=== PATIENT | male | born 1990 | race Caucasian/White ===

== ENCOUNTER 2022-05-31 01:27 | Emergency (ER) | payer OTHER, BC ==
[2022-05-31] MEDS ORDERED: Iopamidol 370 76% 100 ML VIAL FS ONE (01:28)
[2022-05-31 02:00] LABS: Hemoglobin 17.8 g/dL (14.0-18.0); Mean Corpuscular HGB CONC 36.4 g/dL (32.0-36.0); Mean Corpuscular Hemoglobin 31.8 pg (27.0-31.0); Mean Corpuscular Volume 87.5 fL (78.0-98.0); Mean Platelet Volume 7.1 fL (7.4-10.4); Platelet Count 312 thou/uL (130-400); RBC Distribution Width 11.2 % (11.5-14.5); Red Blood Cell (RBC) Count 5.58 mill/uL (4.70-6.10); White Blood Cell (WBC) Count 23.4 thou/uL (4.8-10.8)
[2022-05-31 02:04] LABS: INR-International Normal Ratio 0.9; Prothrombin Time 12.6 sec (12.0-14.7)
[2022-05-31 02:13] LABS: ALT (SGPT) 186 U/L (8-55); AST (SGOT) 172 U/L (5-34); Albumin 4.8 g/dL (3.5-5.0); Alcohol 204 mg/dL (Less than 10); Alkaline Phosphatase 75 U/L (40-110); Anion Gap 21 mmol/L (10-20); BUN (Urea Nitrogen) 9 mg/dL (8.9-20.6); Bilirubin, Total 0.6 mg/dL (0.2-1.2); Calc. Creatinine Clearance 0 mL/min (70-130); Calcium 9.4 mg/dL (7.8-10.44); Carbon Dioxide 18 mmol/L (22-29); Chloride 108 mmol/L (98-107); Estimated GFR 119; Glucose 132 mg/dL (70-105); Potassium 3.3 mmol/L (3.5-5.1); Protein, Total 7.8 g/dL (6.0-8.3); Sodium 144 mmol/L (136-145)
[2022-05-31] MEDS ORDERED: Boostrix 0.5 ML (Tdap) VIAL ONE (02:30)
[2022-05-31] MEDS ORDERED: Propofol 1,000 MG/100 ML VIAL IV ONE (02:30)
[2022-05-31 02:35] LABS: Band 13 % (5-11); Lymphocytes 14 % (21-51); MDiff Complete? YES; Monocytes 7 % (0-10); Neutrophil 66 % (42-75)
[2022-05-31] MEDS ORDERED: Bacitracin 1 PK ONE (03:17)
[2022-05-31] MEDS ORDERED: Ketorolac Tromethamine 30 MG/ML VIAL ONE (03:33)
[2022-05-31 03:37] LABS: Bilirubin Negative (Negative); Blood, Urine Moderate (Negative); Clarity Clear (Clear); Glucose, Urine (Dipstick) Negative (Negative); Ketone, Urine Negative (Negative); Leukocyte Negative (Negative); Nitrite Negative (Negative); Protein, Urine (Dipstick) 30 mg/dL (Neg-Trace); Urobilinogen 0.2 mg/dL (Less than 2); pH, Urine 5.5 (5.0-9.0)
[2022-05-31 03:38] LABS: Specific Gravity, Urine 1.021 (1.002-1.036)
[2022-05-31 03:46] LABS: Bacteria/HPF Rare-Few HPF (None Seen); Mucous/LPF 2+ LPF (<2+); RBC/HPF 0-3 HPF (0-3); Squamous Epithelial 0-3 HPF (0-3); WBC/HPF 0-3 HPF (0-3)
[2022-05-31 03:48] LABS: Amphetamine Not Detected (NotDetected); Barbiturates Screen Not Detected (NotDetected); Benzodiazepine Screen Not Detected (NotDetected); Cocaine Metabolite Screen Not Detected (NotDetected); Medtox Control Line Valid? VALID (VALID); Methadone Not Detected (NotDetected); Methamphetamine Not Detected (NotDetected); Opiate Screen Not Detected (NotDetected); Oxycodone Screen Not Detected (NotDetected); Phencyclidine (PCP) Not Detected (NotDetected); THC/Cannabinoid Screen Not Detected (NotDetected); Tricyclic Screen Not Detected (NotDetected)
== END 2022-05-31 03:55 | disposition home or self-care (01) ==
LOC: BURERS 01:27
DX: S72.051A Unspecified fracture of head of right femur, initial encounter for closed fracture (principal); S00.83XA Contusion of other part of head, initial encounter; S00.81XA Abrasion of other part of head, initial encounter; S09.90XA Unspecified injury of head, initial encounter; S80.811A Abrasion, right lower leg, initial encounter; K76.0 Fatty (change of) liver, not elsewhere classified; V49.9XXA Car occupant (driver) (passenger) injured in unspecified traffic accident, initial encounter
CPT/HCPCS: 27250; 36415; 70450; 71260; 72125; 74177; 80053; 80306; 80307; 81003; 81015; 85025; 85610; 85730; 90471; 90715; 96374; 99152; G0390; J1885; J2704; Q9967